=== PATIENT | male | born 1960 | race Caucasian/White ===

== ENCOUNTER 2018-05-05 16:20 | Emergency (ER) | payer MEDICAID ==
[~2018-05-05] VITALS: Ht 172.7 cm; Wt 83.9 kg
[2018-05-05 16:38] VITALS: BP 148/87
--- NOTE | 2018-05-05 16:45 | NUR ---
ED Nurse Note: A/OX4. AMBULATED IN TO ER DUE TO ABCESS ON BILATERAL KNEES AND LEFT GROIN. PT STATE THAT HE WENT TO ER 05/03/18 BUT NO I/O DONE. SYMPTOM GOT WORSE AND WENT TO PMD AND WAS RECOMMENDED TO COME TO ER. C/O PAIN 10/01.
[2018-05-05] MEDS ORDERED: Lidocaine 1% 10mg/ml/Epi 0.005mg/ml 30ml vial INJ ONE ×2 (17:41→17:45)
--- NOTE | 2018-05-05 17:44 | NUR ---
ED Nurse Note: DR. EDMONDSON AT THE BEDSIDE FOR I/D. LIDOCAINE 1% WITH EPI MPF VERBAL ORDER RECEIVED BY LUÍS ROSS.
[2018-05-05] MEDS ORDERED: Piperacillin/Tazobactam 3.375 GM in NS 110 ML IVPB ONE (18:15)
--- NOTE | 2018-05-05 18:19 | Emergency Room Report ---
History of Present Illness General Chief Complaint: Skin Rash/Abscess Source: Patient Present Illness HPI 57-year-old male patient presents the ER complaining of 3 abscesses on his inguinal region and bilateral knees for the past 3 days. States that he went to another ER when they told him he had cellulitis and prescribed him antibiotics, states he was started on Keflex and Bactrim which he has continued to take. Reports symptoms have worsened since that time, states he went to his primary care doctor earlier today and was told to report to the ER for I&D of abscess. Reports drainage from the inguinal abscess. Denies fever, chest pain, shortness of breath. Denies history of diabetes. Allergies: Coded Allergies: No Known Allergies (Unverified , 05/05/18) Patient History Past Medical History: see triage record Reviewed Nursing Documentation: PMH: Agreed; PSxH: Agreed Nursing Documentation-PMH Past Medical History: No History, Except For Hx Hypertension: Yes Review of Systems All Other Systems: negative except mentioned in HPI Physical Exam Vital Signs Date Time Temp Pulse Resp B/P (MAP) Pulse Ox O2 Delivery O2 Flow Rate FiO2 05/05/18 16:33 98.2 77 18 148/87 98 Room Air Sp02 EP Interpretation: reviewed, normal General Appearance: well appearing, no apparent distress, alert, GCS 15, non- toxic Head: normocephalic, atraumatic Eyes: bilateral eye normal inspection, bilateral eye PERRL ENT: hearing grossly normal, normal pharynx, no angioedema, normal voice, uvula midline, moist mucus membranes Neck: full range of motion Respiratory: lungs clear, normal breath sounds, no rhonchi, no respiratory distress, no accessory muscle use, no wheezing, speaking full sentences Cardiovascular #1: regular rate, rhythm, no edema Musculoskeletal: back normal, digits/nails normal, gait/station normal, normal range of motion, non-tender Neurologic: alert, oriented x3, responsive, motor strength/tone normal, sensory intact Psychiatric: mood/affect normal Skin: other - Left inguinal region; fluctuant abscess, drainage noted, surrounding erythema, tender to palpation; right suprapatellar knee: Small circular 1 cm fluctuant abscess, no surrounding erythema or edema, no drainage no red streaking; left suprapatellar knee: 1 cm circular area of erythema and edema, no palpable mass, no fluctuance or induration, no red streaking Medical Decision Making PA Attestation Dr. Lawrence is my supervising Physician whom patient management has been discussed with. Diagnostic Impression: Primary Impression: Abscess Additional Impression: Cellulitis ER Course On right knee and left inguinal abscess. Pt. presents to the ED c/o abscesses on knees and in left inguinal region. Ddx considered but are not limited to rash, cellulitis, abscess, sebaceous cyst , carbuncle, folliculitis. Does not require imaging at this time. Vital signs: are WNL, pt. is afebrile ED INTERVENTIONS: Patient seen and evaluated by Dr. Ugalde who was kind enough to consult on this patient. I&D performed by him left knee shows cellulitis. Will treat with oral antibiotics. Left knee does not require I&D at this time. Provide with IV vancomycin in the ER. CBC shows no elevation in WBCS CMP unremarkable, mild elevation noted in BUN, creatinine WNL Sterile dressing applied to wound following procedure. Discussed patient care with Dr. Ugadle, will discharge patient home with Augmentin, instructed to take instead of Keflex. Continue taking Bactrim. Follow-up with primary care provider or Dr. Ugalde in 2-3 days for wound check. Return to ER immediately for any worsening of symptoms. Okay for outpatient treatment and follow-up. Keep clean and dry. ER precautions given. DISCHARGE: -Rx provided for Augmentin -Rx provided for Ultram. May cause drowsiness, do not take prior to drinking, driving, operating heavy machinery. At this time pt. is stable for d/c to home. Patient is resting comfortably, in no acute distress, nontoxic appearing. Will provide printed patient care instructions and any necessary prescriptions. Care plan and follow up instructions have been discussed with the patient prior to discharge. Patient instructed to follow-up with primary care provider in 2 - 3 days for wound recheck. Patient questions asked and answered. Patient reports understanding and agreement to treatment plan. ER precautions given. Patient instructed to return to ER immediately for any new or worsening of symptoms including but not limited to fever, worsening of pain symptoms, worsening of erythema, red streaking. - Please note that this Emergency Department Report was dictated using [employer] icer technology software, occasionally this can lead to erroneous entry secondary to interpretation by the dictation equipment. Labs Test 2/11/19 08:25 White Blood Count 9.7 K/UL (4.8-10.8) Red Blood Count 5.11 M/UL (4.70-6.10) Hemoglobin 15.0 G/DL (14.2-18.0) Hematocrit 46.1 % (42.0-52.0) Mean Corpuscular Volume 90 FL (80-99) Mean Corpuscular Hemoglobin 29.4 PG (27.0-31.0) Mean Corpuscular Hemoglobin Concent 32.6 G/DL (32.0-36.0) Red Cell Distribution Width 12.8 % (11.6-14.8) Platelet Count 198 K/UL (150-450) Mean Platelet Volume 10.7 FL (6.5-10.1) Neutrophils (%) (Auto) 67.3 % (45.0-75.0) Lymphocytes (%) (Auto) 23.0 % (20.0-45.0) Monocytes (%) (Auto) 7.1 % (1.0-10.0) Eosinophils (%) (Auto) 1.4 % (0.0-3.0) Basophils (%) (Auto) 1.2 % (0.0-2.0) Sodium Level 137 MMOL/L (136-145) Potassium Level 4.0 MMOL/L (3.5-5.1) Chloride Level 100 MMOL/L (98-107) Carbon Dioxide Level 28 MMOL/L (21-32) Anion Gap 10 mmol/L (5-15) Blood Urea Nitrogen 19 mg/dL (7-18) Creatinine 1.3 MG/DL (0.55-1.30) Estimat Glomerular Filtration Rate 56.5 mL/min (>60) Glucose Level 96 MG/DL (74-106) Calcium Level 9.5 MG/DL (8.5-10.1) Total Bilirubin 0.7 MG/DL (0.2-1.0) Aspartate Amino Transf (AST/SGOT) 17 U/L (15-37) Alanine Aminotransferase (ALT/SGPT) 29 U/L (12-78) Alkaline Phosphatase 77 U/L (46-116) Total Protein 8.4 G/DL (6.4-8.2) Albumin 4.0 G/DL (3.4-5.0) Globulin 4.4 g/dL Albumin/Globulin Ratio 0.9 (1.0-2.7) Last Vital Signs Date Time Temp Pulse Resp B/P (MAP) Pulse Ox O2 Delivery O2 Flow Rate FiO2 05/05/18 16:38 98.2 77 18 148/87 98 Room Air Status: improved Disposition: HOME, SELF-CARE Condition: Stable Scripts Tramadol Hcl* (ULTRAM*) 50 Mg Tablet 50 MG ORAL Q6H PRN for For Pain, #10 TAB 0 Refills Prov: Rey Antony 05/05/18 Amoxicillin/Potassium Clav 875-125* (AUGMENTIN 875-125 TABLET*) 1 Each Tablet 1 TAB ORAL TWICE A DAY for 10 Days, #20 TAB Prov: Rey Antony 05/05/18 Patient Instructions: Abscess, Cellulitis, [id number]-[id number] Additional Instructions: Followup with PCP in 2-3 days for wound check. Take medications as instructed. Ultram may cause drowsiness, do not take prior to drinking, driving, operating heavy machinery. Patient questions asked and answered. Apply warm compresses to affected area. Keep wound clean and dry. ER precautions given. Return to ER for new or worsening of symptoms including but not limited to chest pain, SOB, red streaking, worsening of abscess, intractable vomiting. Rey Antony May 05, 2018 18:19
[2018-05-05 18:42] LABS: BASOPHILS % (AUTO) 1.2 % (0.0-2.0); EOSINOPHILS % (AUTO) 1.4 % (0.0-3.0); HEMATOCRIT 46.1 % (42.0-52.0); MEAN CORPUSCULAR VOLUME 90 FL (80-99); MONOCYTES % (AUTO) 7.1 % (1.0-10.0); NEUTROPHILS % (AUTO) 67.3 % (45.0-75.0); PLATELET COUNT 198 K/UL (150-450); RED BLOOD COUNT 5.11 M/UL (4.70-6.10); RED CELL DISTRIBUTION WIDTH 12.8 % (11.6-14.8); WHITE BLOOD COUNT 9.7 K/UL (4.8-10.8)
[2018-05-05 18:52] LABS: ANION GAP 10 mmol/L (5-15); BLOOD UREA NITROGEN 19 mg/dL (7-18); CALCIUM 9.5 MG/DL (8.5-10.1); CARBON DIOXIDE 28 MMOL/L (21-32); CHLORIDE 100 MMOL/L (98-107); CREATININE 1.3 MG/DL (0.55-1.30); SODIUM 137 MMOL/L (136-145)
[2018-05-05 18:56] LABS: ALANINE AMINOTRANSFERASE 29 U/L (12-78); ALBUMIN/GLOBULIN RATIO 0.9 (1.0-2.7); ALKALINE PHOSPHATASE 77 U/L (46-116); ASPARTATE AMINO TRANSFERASE 17 U/L (15-37); BILIRUBIN,TOTAL 0.7 MG/DL (0.2-1.0)
--- NOTE | 2018-05-05 18:57 | Consultation ---
History of Present Illness General Date patient seen: May 05, 2018 Reason for Hospitalization: Skin Rash/Abscess Present Illness HPI 57 year old male otherwise healthy began to have right knee and left inguinal pain a few days ago. noted area of cellulitis in right knee and left groin so he went to his PCP for evaluation. Place on oral Abx without significant improvement. areas of cellulitis became larger and left groin began to drain purulent fluid. was sent by his PCP to ED for evaluation given worsening. surgery called to evaluate and assist with care/management. patient seen, chart reviewed, patient examined. Allergies: Coded Allergies: No Known Allergies (Unverified , 05/05/18) Patient History Healthcare decision maker Resuscitation status Advanced Directive on File Review of Systems Review of Symptoms General ROS: no weight loss or fever Psychological ROS: no depression or mood changes, no memory loss Ophthalmic ROS: no visual changes or eye irritation ENT ROS: no nasal congestion, hearing loss, dizziness Allergy and Immunology ROS: no allergic symptoms or urticaria Hematological and Lymphatic ROS: no swollen glands, unusual bleeding or bruising Endocrine ROS: no polyuria, polydipsia, weight changes, temperature intolerance Respiratory ROS: no cough, shortness of breath, or wheezing Cardiovascular ROS: no chest pain or dyspnea on exertion Gastrointestinal ROS: denies abdominal pain, bright red blood in stool. Musculoskeletal ROS: no myalgias or arthralgias Neurological ROS: no TIA or stroke symptoms Dermatological ROS: no new or changing skin lesions, rashes or pruritis Physical Exam Physical Exam General appearance: alert, cooperative, no distress, appears stated age Head: Normocephalic, without obvious abnormality, atraumatic Eyes: conjunctivae/corneas clear. PERRL, EOM's intact. Fundi benign Throat: Lips, mucosa, and tongue normal. Teeth and gums normal Neck: supple, symmetrical, trachea midline, no adenopathy, thyroid: not enlarged, symmetric, no tenderness/mass/nodules, no carotid bruit and no JVD Lungs: clear to auscultation bilaterally Heart: regular rate and rhythm, S1, S2 normal, no murmur, click, rub or gallop Abdomen: soft, non-tender. Bowel sounds normal. No masses, no organomegaly Extremities: extremities normal, atraumatic, no cyanosis or edema Pulses: 2+ and symmetric Skin: Skin color, texture, turgor normal. left inguinal cellulitis 7cm x9cm with 3mm area of skin ulceration at apex, indurated, tender, purulent drainage from ulceration on palpation. right knee 3cm x 4cm area of induration with fluctuance at apex, no drainage. Neurologic: Grossly normal Last 24 Hour Vital Signs Date Time Temp Pulse Resp B/P (MAP) Pulse Ox O2 Delivery O2 Flow Rate FiO2 05/05/18 16:38 98.2 77 18 148/87 98 Room Air 05/05/18 16:33 98.2 77 18 148/87 98 Room Air Laboratory Tests Test 05/05/18 08:25 White Blood Count 9.7 K/UL (4.8-10.8) Red Blood Count 5.11 M/UL (4.70-6.10) Hemoglobin 15.0 G/DL (14.2-18.0) Hematocrit 46.1 % (42.0-52.0) Mean Corpuscular Volume 90 FL (80-99) Mean Corpuscular Hemoglobin 29.4 PG (27.0-31.0) Mean Corpuscular Hemoglobin Concent 32.6 G/DL (32.0-36.0) Red Cell Distribution Width 12.8 % (11.6-14.8) Platelet Count 198 K/UL (150-450) Mean Platelet Volume 10.7 FL (6.5-10.1) H Neutrophils (%) (Auto) 67.3 % (45.0-75.0) Lymphocytes (%) (Auto) 23.0 % (20.0-45.0) Monocytes (%) (Auto) 7.1 % (1.0-10.0) Eosinophils (%) (Auto) 1.4 % (0.0-3.0) Basophils (%) (Auto) 1.2 % (0.0-2.0) Sodium Level Pending Potassium Level Pending Chloride Level Pending Carbon Dioxide Level Pending Blood Urea Nitrogen Pending Creatinine Pending Estimat Glomerular Filtration Rate Pending Glucose Level Pending Calcium Level Pending Total Bilirubin Pending Aspartate Amino Transf (AST/SGOT) Pending Alanine Aminotransferase (ALT/SGPT) Pending Alkaline Phosphatase Pending Total Protein Pending Albumin Pending Globulin Pending Height (Feet): 5 Height (Inches): 8.00 Weight (Pounds): 185 Assessment/Plan Problem List: (1) Cellulitis ICD Codes: L03.90 - Cellulitis, unspecified SNOMED: 797500223 (2) Abscess Assessment & Plan: left inguinal abscess - needs I&D right knee abscess - needs I&D see procedure note. -f/u cultures -d/c home -f/u with PCP -packing and dressing changes TID -augmentin and bactrim until cultures resulted thank you ICD Codes: L02.91 - Cutaneous abscess, unspecified SNOMED: [id number] Bari Ugalde May 05, 2018 18:57
--- NOTE | 2018-05-05 19:00 | NUR ---
HAND-OFF: Report given to FLOWER Hernandez. No s/s of distress.
[2018-05-05] MEDS ORDERED: AUGMENTIN 875-1 EAC1 ORAL (19:01)
[2018-05-05] MEDS ORDERED: TRAMADOL HCL50 MG ORAL (19:01)
--- NOTE | 2018-05-05 19:01 | NUR ---
ED Nurse Note: Received report from Nanette/RN. Pt is A/O X 4. VSS.
--- NOTE | 2018-05-05 19:07 | Operative Note - PDOC ---
Operative Note Operative Note Date of Operation/Procedure: May 05, 2018 Pre-op Diagnosis: 1. left inguinal abscess 2. right knee abscess Post-op Diagnosis: same as pre-op Surgeon: juice Anesthesia: local Specimen: yes - cultures Complications: none Condition: stable Estimated Blood Loss: minimal Drains: none Implant(s) used?: No Indications for Procedure 57M multiple abscess of skin including left inguinal and right knee refractory to oral abx treatment. worsening. now left inguinal with purulent drainage. I& D indicated and recommended. risks, benefits, and alternatives discussed in detail with patient. consent obtained. procedure bedside in ED Description of Procedure patient made comfortable at bedside in ED. left groin and right knee prepped and draped in standard surgical fashion. 1%lido with epi infiltrated in proposed skin incision site. using fresh #11 scalpel the left groin and right knee with incised. purulent drainage evacuated and sent for cultures. wounds irrigated and cleaned. wounds packed with gauze and dressings applied. patient tolerated well. Bari Ugalde May 05, 2018 19:07
[2018-05-05 19:08] VITALS: BP 142/81
--- NOTE | 2018-05-05 19:08 | NUR ---
ED Nurse Note: Pt has seen by Rey/LUÍS, all orders carried out.Pt is ready for Discharge. D/C instruction and Prescription given to Pt and verbalized understanding.IV/ID band removed. Pt d/c from ED with steady gait with all belongings.
== END 2018-05-05 19:08 | disposition home or self-care (01) ==
LOC: EMR 17:00
DX: L02.214 Cutaneous abscess of groin (principal); L02.416 Cutaneous abscess of left lower limb; I10 Essential (primary) hypertension
CPT/HCPCS: 10061; 36415; 80053; 85025; 87070; 87075; 87181; 87205; 96365; 99284; J2543; Z7502

== ENCOUNTER 2018-09-05 07:00 | Inpatient (IN) | payer OTHER ==
[~2018-09-05] VITALS: Ht 172.7 cm; Wt 94.4 kg
[~2018-09-05 07:00] MED LIST: AUGMENTIN 875-1 EAC1 ORAL; TRAMADOL HCL50 MG ORAL
[2018-10-17] VITALS (16 sets, daily range): BP systolic 104–137; BP diastolic 60–91
[2018-10-17] MEDS ORDERED: Propofol 1,000mg/ 100ml btl IV ONE (07:00)
[2018-10-17] MEDS ORDERED: Dexamethasone 20mg/5ml IVP ONE (07:00)
[2018-10-17] MEDS ORDERED: ceFAZolin sod 1 GM in NS 55 ML IVPB ONE (07:00)
[2018-10-17] MEDS ORDERED: DiphenhydrAMINE 50mg/ml Inj IVP PRN (08:00)
[2018-10-17] MEDS ORDERED: LR 1000ml 1,000 ML IVLG SCH (08:00)
[2018-10-17] MEDS ORDERED: LORazepam Inj 2mg/ml 1ml IV PRN (08:00)
[2018-10-17] MEDS ORDERED: Atropine Sulfate 0.4mg/ml inj IVP PRN (08:00)
[2018-10-17] MEDS ORDERED: Midazolam 2mg/2ml Inj IVP PRN (08:00)
[2018-10-17] MEDS ORDERED: fentaNYL 100 mcg/2 mL IV PRN (08:00)
[2018-10-17] MEDS ORDERED: Labetalol 5mg/ml 20ml vial IV PRN (08:00)
[2018-10-17] MEDS ORDERED: Acetaminophen (Non formulary) 100 ML IV ONE (08:00)
[2018-10-17] MEDS ORDERED: HYDROcodone/Acetamin 5/325 tab ORAL PRN (08:00)
[2018-10-17] MEDS ORDERED: Hydromorphone 0.5mg/0.5ml inj IVP PRN (08:00)
[2018-10-17] MEDS ORDERED: Ketorolac 30mg Inj IV PRN ×2 (08:00)
[2018-10-17] MEDS ORDERED: oxyCODONE HCL/Acetaminophen 5/325mg ORAL PRN (08:00)
[2018-10-17] MEDS ORDERED: Meperidine 50mg/ml Inj(FOR RIGORS ONLY) IVP PRN (08:00)
[2018-10-17] MEDS ORDERED: HYDROcodone/Acetamin 7.5/325 tab ORAL PRN (08:00)
[2018-10-17] MEDS ORDERED: Metoclopramide 10mg/2ml Inj IVP PRN (08:00)
--- NOTE | 2018-10-17 08:06 | Immediate Post-Op Evaluation ---
Immediate Post-Op Evalulation Immediate Post-Op Evalulation Procedure: ALIF L4-L5 Date of Evaluation: Oct 17, 2018 Blood Products: 0 Pain Score (1-10): 2 Nausea: No Vomiting: No Complications 0 Patient Status: awake, reacts, patent, extubated, none Hydration Status: adequate Dru Grams Ancef IV Given Within 1 Hr of Incision: Yes Raheem Hernandez MD Oct 17, 2018 08:06
[2018-10-17] MEDS ORDERED: Chloraseptic Spray 20mL Bottle ORAL PRN (08:30)
[2018-10-17] MEDS ORDERED: HYDROmorphone 1mg/ml Carpuject SUBQ PRN (08:30)
[2018-10-17] MEDS ORDERED: LORazepam 0.5mg tab ORAL PRN (08:30)
[2018-10-17] MEDS ORDERED: Lidocaine 1% Plain 30 ml INJ ONE (08:40)
[2018-10-17] MEDS ORDERED: fentaNYL 100 mcg/2 mL IV ONE ×2 (08:50→10:42)
[2018-10-17] MEDS ORDERED: Lidocaine 1% MPF 10mg/ml 5ml ONE (08:52)
[2018-10-17] MEDS ORDERED: Sodium Chloride 10ml vial INJ ONE (08:52)
--- NOTE | 2018-10-17 08:56 | Pre-Procedure Note/Attestation ---
Pre-Procedure Note/Attestation Complete Prior to Procedure Planned Procedure: not applicable Procedure Narrative: L4-L5 ALIF WITH ANTERIOR INTERNAL PLATE FIXATION FUSION Indications for Procedure Pre-Operative Diagnosis: post trauma back pain with clinical instability Attestation I attest that I discussed the nature of the procedure; its benefits; risks and complications; and alternatives (and the risks and benefits of such alternatives ), prior to the procedure, with the patient (or the patient's legal entry level sales representative). I attest that, if there was a reasonable possibility of needing a blood transfusion, the patient (or the patient's legal entry level sales representative) was given the [place] [employer] standardized written summary, pursuant to the Maximilian Flavia Blood Safety Act ([place] Health and Safety Code # 1645, as amended). I attest that I re-evaluated the patient just prior to the surgery and that there has been no change in the patient's H&P, except as documented below: Jonatan Matthews MD Oct 17, 2018 08:56
[2018-10-17] MEDS ORDERED: NORCO 10-325 T1 EACH ORAL (09:04)
[2018-10-17] MEDS ORDERED: Dexamethasone 20mg/5ml ONE (09:24)
[2018-10-17] MEDS ORDERED: Neostigmine 1mg/ml 10ml Inj ONE (09:30)
[2018-10-17] MEDS ORDERED: Sterile Water Irrig 1000ml IRRIG ONE (09:30)
[2018-10-17] MEDS ORDERED: NS Irrig 1000ml ONE (09:30)
[2018-10-17] MEDS ORDERED: Zemuron 50mg/5ml Inj IV ONE (09:30)
[2018-10-17] MEDS ORDERED: LR 1000ml ONE (09:30)
[2018-10-17] MEDS ORDERED: Heparin 5000 units/ml inj ONE (09:31)
[2018-10-17] MEDS ORDERED: Ropivacaine 5mg/ml Vial 30ml INJ ONE (09:31)
[2018-10-17] MEDS ORDERED: Gelfoam Size TOPIC ONE (09:31)
[2018-10-17] MEDS ORDERED: Thrombin 5000 units TOPIC ONE (09:31)
[2018-10-17] MEDS ORDERED: Bacitracin 50000 Units Vial ONE (09:32)
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
--- NOTE | 2018-10-17 10:21 | Anethesia Preoperative Eval ---
Anesthesia Pre-op PMH/ROS General Date of Evaluation: Oct 17, 2018 Time of Evaluation: 09:28 Anesthesiologist: David ASA Score: ASA 3 Mallampati Score Class I : Soft palate, uvula, fauces, pillars visible Class II: Soft palate, uvula, fauces visible Class III: Soft palate, base of uvula visible Class IV: Only hard plate visible Mallampati Classification: Class III Surgeon: Cassie Diagnosis: Back Pain Surgical Procedure: ALIF L4-L5 Anesthesia History: none Social History: current smoker - 40 pk yrs Family History: no anesthesia problems Allergies: Coded Allergies: No Known Allergies (Unverified , 05/05/18) Medications: see eMAR Patient NPO?: Yes NPO Date: Oct 16, 2018 NPO Time: 2300 Past Medical History Cardiovascular: Reports: HTN Pulmonary: Reports: COPD - Smoker Other: obesity Anesthesia Pre-op Phys. Exam Physician Exam Last Vital Signs Date Time Temp Pulse Resp B/P (MAP) Pulse Ox O2 Delivery O2 Flow Rate FiO2 10/17/18 09:20 97.8 62 20 122/76 (91) 97 10/17/18 09:04 Room Air Constitutional: NAD Neurologic: CN 2-12 intact Cardiovascular: RRR Respiratory: CTA Gastrointestinal: S/NT/ND Airway Exam Mallampati Score: Class III MO: limited ROM: limited Teeth: missing, intact Anesthesia Pre-op A/P Risk Assessment & Plan Assessment: ASA 3 Plan: GA, SED, GlideScope Go Status Change Before Surgery: No Pre-Antibiotics Dru Grams Ancef IV Given Within 1 Hr of Incision: Yes Time Given: 09:56 Raheem Hernandez MD Oct 17, 2018 10:21
--- NOTE | 2018-10-17 10:22 | Immediate Post-Op Evaluation ---
Immediate Post-Op Evalulation Immediate Post-Op Evalulation Procedure: ALIF L4-L5 Date of Evaluation: Oct 17, 2018 Time of Evaluation: 11:55 IV Fluids: 800 LR Blood Products: 0 Estimated Blood Loss: 30 Urinary Output: 0 Blood Pressure Systolic: 147 Blood Pressure Diastolic: 93 Pulse Rate: 67 Respiratory Rate: 16 O2 Sat by Pulse Oximetry: 100 Temperature (Fahrenheit): 97 Pain Score (1-10): 3 Nausea: No Vomiting: No Complications 0 Patient Status: awake, reacts, patent, extubated, none Hydration Status: adequate Dru Grams Ancef IV Given Within 1 Hr of Incision: Yes Time Given: 09:56 Raheem Hernandez MD Oct 17, 2018 10:22
--- NOTE | 2018-10-17 10:23 | 48 Hour Post Anesthesia Eval ---
Post Anesthesia Evaluation Procedure: ALIF L4-L5 Date of Evaluation: Oct 17, 2018 Time of Evaluation: 14:12 Blood Pressure Systolic: 143 0: 81 Pulse Rate: 72 Respiratory Rate: 18 Temperature (Fahrenheit): 98.2 O2 Sat by Pulse Oximetry: 96 Airway: patent Nausea: No Vomiting: No Pain Intensity: 3 Hydration Status: adequate Cardiopulmonary Status: Stable Mental Status/LOC: patient returned to baseline Follow-up Care/Observations: 0 Post-Anesthesia Complications: 0 Follow-up care needed: N/A Raheem Hernandez MD Oct 17, 2018 10:23
[2018-10-17] MEDS ORDERED: Glycopyrrolate 0.2mg/ml 1ml Vial ONE (11:09)
--- NOTE | 2018-10-17 11:11 | Brief Operative Note ---
Immediate Post Operative Note Operative Note Pre-op Diagnosis: post trauma back pain with clinical instability Procedure: ALIF L4-L5 Anterior Plate SSEP Xray Local osteopromotive material Post-op Diagnosis: same as pre-op Findings: consistent w/pre-op dx studies Surgeon: Cassie Ph.D., M.D. Additional Surgeons: Checo ORLANDO Anesthesiologist: David ORLANDO Anesthesia: general Specimen: yes Complications: none Condition: stable Fluids: anesthesia Estimated Blood Loss: minimal Drains: none Implant(s) used?: Yes Jonatan Matthews MD Oct 17, 2018 11:11
[2018-10-17] MEDS ORDERED: Naloxone 0.4mg/ml Inj IVP PRN (11:15)
--- NOTE | 2018-10-17 12:28 | NUR ---
CASE MANAGEMENT:REVIEW 58 YR OLD MALE HERE FOR ELECTIVE SURGERY SI: BACK PAIN 97.8 62 20 122/76 97% ON RA IS: TO SURGERY FOR ALIF L4-L5 IV ANCEF Q8HR IVF@150/HR IV DILAUDID PRN : TO MED/SURG 3 EAST POST OP INTERQUAL CRITERIA MET
--- NOTE | 2018-10-17 13:00 | NUR ---
NURSE NOTES: Report received from Nevin CRENSHAW from PACU via telephone report at 1248. Patient arrived at 1300 to 315-2 via bed on O2 2LNC in stable condition. VSS. Patient sleeping, awakens to name. No distress, no SOB, no NV. IVF (LR) infusing to right hand, will connect to IV pump and change IVF as ordered. Bilateral SCDs on. Abdominal dressing CDI, ice pack in place. CMS+ skin warm, pulses palpable, wiggles, hand grasps/pedal pushes equal 4/5. Instructed patient and spouse on new orders and plan of care, verbalized understanding. Provided IS, instructed/demonstrated on use, patient needs further instructions and reinforcement. Belongings reviewed with spouse and PACU staff member. Oriented patient and spouse to room and call light. Bed in lowest position, will continue to monitor.
[2018-10-17] MEDS: D5 1/2NS 1,000 ML IV SCH ×2 (13:35→20:24)
[2018-10-17] MEDS: HYDROmorphone 1mg/ml Carpuject IVP PRN ×2 (14:08→19:14)
--- NOTE | 2018-10-17 15:02 | Diagnostic Imaging Report ---
INDICATION: Pain, intraoperative TECHNIQUE: Intraoperative imaging Fluoroscopy time: 6.6 seconds Total dose: 0.92168 mGym2 Total number of images: 6 3 COMPARISON: None FINDINGS: And initial image demonstrates surgical tool projecting anterior to what is presumably L4-5. Subsequent images demonstrate placement of anterior fusion hardware at L4-5 IMPRESSION: Intraoperative imaging, as described
[2018-10-17] MEDS: Tamsulosin 0.4mg cap ORAL SCH (16:35)
--- NOTE | 2018-10-17 17:00 | Operative Note - Dictated ---
DATE OF OPERATION: 10/17/2018 VASCULAR SURGEON: Ke Kessler M.D. SPINE SURGEON: Jonatan Matthews M.D. PREOPERATIVE DIAGNOSIS: Lumbar pain. POSTOPERATIVE DIAGNOSIS: Lumbar pain. PROCEDURE PERFORMED: Anterior retroperitoneal exposure, L4-L5 vertebral interspace, left retroperitoneal approach. INDICATIONS: This is a very pleasant gentleman who was seen in my office prior to surgery. He has been scheduled for anterior spine operation at L4-L5. The patient has no prior history of anterior spine surgery. No history of deep venous thrombosis or bleeding complications. He was made aware of the risks of surgery including vascular injury, possible need for blood transfusion and deep venous thrombosis. DESCRIPTION OF FINDINGS: A low vertical midline incision was used. A left retroperitoneal approach was used. There was no peritoneal or ureteral violation. There was no vascular injury. Exposure of L4-L5 was obtained above the iliac bifurcation and confirmed using fluoroscopy. On completion, the peritoneum and ureter were intact. Iliac vessels were intact. Blood loss less than 100 mL. Complications, none. DESCRIPTION OF PROCEDURE: The patient was taken to the operative room. General anesthesia was used. antibiotics were given. The patient's abdomen was prepped and draped. Appropriate time-out of procedure was taken. Low vertical midline incision made infraumbilically. The anterior fascia was incised longitudinally in the midline. A plane was identified posterior to the left rectus abdominis and developed posterolaterally to the patient's left. The retroperitoneal space entered below the arcuate line. The peritoneum and ureter mobilized towards the patient's right exposing the left common iliac artery and vein. Dissection was carried lateral to the left common iliac vessel. The iliolumbar vein was small and ligated with vascular clamps proximally and distally. The L4 segmental vessels were ligated vascular clips and divided. This allowed us to retract the left iliac artery and vein toward the patient's right exposing the anterior surface of the L4-L5. The Omni retractor blades were set in place. Fluoroscopy was then used to confirm the appropriate level. The instrumentation performed at L4-L5 dictated separately. On completion, retractor gently removed. The peritoneum and ureter were intact. Iliac vessels were intact. Blood loss less than 100 mL. Anterior fascia was then closed using #1 PDS in a running fashion. The skin and subcutaneous tissue closed with 3-0 Vicryl and 4-0 Monocryl running subcuticular closure technique. Estimated blood loss less than 100 mL. Complications, none. Ke Kessler M.D. DR: Shanna JOB#: [id number] CC:
--- NOTE | 2018-10-17 17:00 | Operative Note - Dictated ---
DATE OF OPERATION: 10/17/2018 PRIMARY SURGEON: Jonatan Matthews M.D. VASCULAR SURGEON: Dr. Kessler. Please see separate exposure report, closure report by Dr. Kessler. ANESTHESIOLOGIST: Raheem Hernandez M.D. ANESTHESIA: General with intubation. ESTIMATED BLOOD LOSS: Less than 50 mL. COMPLICATIONS: None. POSTOPERATIVE CONDITION: Good/stable. PROCEDURE: 1. ALIF L4-L5, anterior internal plate fixation. 2. Placement of BMP/osteopromotive material encased in fibrin glue. 3. Anterior internal plate fixation in compressive fashion 25 mm titanium screws. 4. SSEP monitoring. 5. Local anesthetic applied by surgeons. 6. Intraoperative fluoroscopy interpreted by surgeons. DESCRIPTION OF PROCEDURE: The patient was brought to the operating room and in the supine position, general anesthesia with intubation was induced. IV antibiotics and IV Decadron were administered 30 minutes prior to incision time. Anterior abdomen was sterilely prepped and draped free in usual sterile fashion. Please see exposure and closure through the separate dictation by Dr. Kessler, vascular surgery. L4-L5 was identified in the AP and lateral planes. Under sterile conditions with the spine needle placed 3 mm into the disk space. Level position marked. Needle removed. Annulotomy followed diskectomy to, but not through the posterior longitudinal ligament. End-plates denuded of cartilage without violation of subchondral bone. Appropriate trials utilized for determination of the correct size implant. Implant selected, mounded, packed with bone morphogenic protein appropriately and inserted under direct observation with magnification. Fluoroscopic guidance. Insert removed. Graft incorporated in fibrin glue. Anterior internal plate fixation in compressive fashion. Bilateral screws L4, bilateral screws at L5. Locked into position. AP and lateral radiographs obtained and recorded demonstrating excellent alignment and position as correct. Wound irrigated with antibiotic-containing saline. SSEP monitoring stable. Jonatan Matthews M.D. DR: RACHELLE JOB#: [id number] CC:
[2018-10-17] MEDS: ceFAZolin sod 1 GM in D5W 55 ML IV SCH (18:44)
--- NOTE | 2018-10-17 19:45 | NUR ---
NURSE NOTES: Received report from FLOWER Zabala and walking rounds done with outgoing nurse. Received pt lying in bed, AOx4, pain level 2/10, no distress noted. IV R hand patent and intact. IV fluid infusing as ordered. Surgical dressing C/D/I. Plan of care discussed with pt., verbalized understanding. Bed in lowest position and locked, side rails up x 2, call light within reach. Will continue to monitor.
[2018-10-18] MEDS: ceFAZolin sod 1 GM in D5W 55 ML IV SCH ×2 (01:59→09:16)
[2018-10-18] MEDS: D5 1/2NS 1,000 ML IV SCH ×4 (02:43→23:25)
[2018-10-18 04:00] VITALS: BP 102/60
[2018-10-18] MEDS: HYDROcodone/Acetamin 10/325 tab ORAL PRN ×2 (04:21→16:43)
--- NOTE | 2018-10-18 07:41 | NUR ---
HAND-OFF: Report given to FLOWER Hayes. Pt in stable condition.
[2018-10-18 08:00] VITALS: BP 102/58
--- NOTE | 2018-10-18 08:00 | NUR ---
NURSE NOTES: Received report from Jeremie Servin pt a/a/o x4 laying in bed with no signs of distress or other issues this time. surgical dressing dry and intact. IV on the right FA gauge#20 running D5NS@50ml/hr. pt was able to ambulate around the room with steady gait. call light within reach. bed in lowest position., side rales up x2. I will f/u as needed.
[2018-10-18] MEDS: HYDROmorphone 1mg/ml Carpuject IVP PRN ×3 (09:25→21:45)
[2018-10-18] MEDS ORDERED: Tubing IV Secondary IV ONE (09:38)
[2018-10-18] MEDS ORDERED: D5 1/2NS 1000ml IV ONE (09:38)
--- NOTE | 2018-10-18 10:30 | NUR ---
PT Note Attempted to see patient for eval/tx but patient requested to defer PT till this afternoon as he just got back to bed. He states that he was assisted by nursing to use the bathroom earlier.
[2018-10-18 12:00] VITALS: BP 128/66
--- NOTE | 2018-10-18 14:36 | NUR ---
CASE MANAGEMENT:REVIEW 10/18/2018 SI: BACK PAIN T 97.4 HR 52 RR 18 B/P 126/66 SATS 96% ON RA NO LABS TODAY IS: IV ANCEF Q8HR IVF@150/HR IV DILAUDID PRN : TO MED/SURG [facility]
--- NOTE | 2018-10-18 15:38 | NUR ---
PT Note PT akiko completed, treatment initiated. Patient needs physical therapy to instruct and train on proper log rolling techniques and proper body mechanics for safe and independent functional mobility and gait. Addendum: 10/18/18 at 1540 by AMANDA CHRISTIANSON PT Amended: Links added.
[2018-10-18 16:00] VITALS: BP 110/60
[2018-10-18] MEDS: Tamsulosin 0.4mg cap ORAL SCH (16:20)
--- NOTE | 2018-10-18 17:45 | Progress Note ---
DATE: 10/18/2018 ACUTE PAIN MANAGEMENT PHYSICIAN PROGRESS NOTE MEDICATIONS: Medication administration record reviewed. Medications include Flomax, Chloraseptic spray, Zofran, Narcan, Ativan, Dilaudid, [place], Pepcid, Benadryl, Catapres, Soma, Mylanta, Fioricet, and Tylenol. LABORATORY STUDIES: No interval laboratory studies. OBJECTIVE: Vital signs within normal limits. Afebrile, pulse 63, respirations 20, and blood pressure 102/58. Oxygen saturation 97% on supplemental oxygen. I spent over 60 minutes in consultation today. The patient has been out of bed, ambulating to the restroom. The patient is a very heavy smoker. I encouraged the patient to stop smoking as well as to be very aggressive with his incentive spirometer usage. The patient has stated that his pain is significant with coughing. I instructed him to more frequently request breakthrough p.r.n. pain medications to enable deep breathing. The patient has tolerated both Dilaudid and Avawam without any adverse side effects. I will continue the current analgesic regimen as ordered. After his ALIF procedure, he still has not yet passed positive flatus. Therefore, we will continue him NPO except for medications and ice chips, until there is better evidence of caodaism of bowel function. He remains on IV fluids for intravascular rehydration. I will continue the patient on Pepcid b.i.d. for GI ulcer prophylaxis. He has sequential compression pneumatic devices for DVT prophylaxis. I have ordered low-dose oral Ativan in case of nicotine withdrawal agitation. He will continue physical therapy training as tolerated. Aleksandar Cantor M.D. DR: TRINY JOB#: [id number] CC:
--- NOTE | 2018-10-18 19:13 | NUR ---
HAND-OFF: Report given to Jeremie Servin pt in stable condition. during my shift pt was able to ambulate around his room x2 with staff assistance and around the unit with physical therapy x1 and the use of FWW. - NO BM today and No flatus
--- NOTE | 2018-10-18 19:35 | NUR ---
NURSE NOTES: Received report from FLOWER Hayes and walking rounds made with outgoing nurse. Received pt lying in bed AOx4, denies pain at this time, no distress noted. Surgical dressing C/D/I. Pt states he has notpass gas. Encouraged pt to use incentive spirometry q 1 hr x 10 while awake, verbalized understanding. Bed in lowest position and locked, side rails up x 2, call light within reach. Will continue to monitor.
[2018-10-18 20:00] VITALS: BP 123/72
[2018-10-19] VITALS: BP 122/68
[2018-10-19] MEDS: HYDROmorphone 1mg/ml Carpuject IVP PRN ×2 (02:14→05:44)
[2018-10-19 04:51] VITALS: BP 126/64
[2018-10-19] MEDS: D5 1/2NS 1,000 ML IV SCH ×3 (05:30→20:52)
--- NOTE | 2018-10-19 07:01 | NUR ---
NURSE NOTES: Pt stable overnight, still not pass gas, ambulated to hallway with walker accompanied by RN, gait steady, c/o nausea, medication as needed. Re-inforce teaching to use IS when awake. Verbalized understanding. Will endorse to next nurse.
--- NOTE | 2018-10-19 07:30 | NUR ---
HAND-OFF: Report given to FLOWER Crenshaw. Pt in stable condition.
--- NOTE | 2018-10-19 07:45 | Progress Note ---
DATE: 10/19/2018 ACUTE PAIN MANAGEMENT PHYSICIAN PROGRESS NOTE VITAL SIGNS: Within normal limits. Afebrile, pulse 81, respirations 18, blood pressure 126/64, oxygen saturation 94% on room air. LABORATORY STUDIES: No interval laboratory studies. MEDICATIONS: Medication administration record reviewed. Medications include Pepcid, Flomax, IV fluids, Narcan, Benadryl, Ativan, Fioricet, Tylenol, Zofran, Mylanta, Soma, Chloraseptic spray, Catapres, [place], Dilaudid. I spent over 60 minutes in consultation today. The patient still has not yet passed positive flatus after his ALIF procedure. He is starting to burp, so we would expect passing gas to occur soon. Once the patient does start passing flatus, the surgeon will be notified to determine if he can begin to advance the patient's diet. The patient will remain on IV fluids for good hydration. The patient is making urine, is voiding urine well, and urine appears fairly dilute. I will decrease the IV fluids to 125 mL an hour. The patient is having mild nausea symptoms. I asked if he wished to switch the Dilaudid from intravenous route to subcutaneous route. The patient stated that he preferred to keep the route as previously ordered. The patient shows no oversedation. He is a heavy smoker, but does not appear to demonstrate any withdrawal agitation. He may be having nicotine withdrawal, however, which may be slowing his recovery. We will continue the patient ambulating as tolerated. Soma remains available as an antispasm agent if necessary. The patient has been relatively noncompliant using his incentive spirometer. I did encourage much more frequent usage in light of his tobacco usage. We will continue supportive care while we await improvement and religious of bowel function after his ALIF procedure. We do encourage sequential compression pneumatic devices on his lower extremities for DVT prophylaxis when in bed. Aleksandar Cantor M.D. DR: Giovanni JOB#: [id number] CC:
[2018-10-19 08:00] VITALS: BP 109/66
--- NOTE | 2018-10-19 08:11 | NUR ---
NURSE NOTES: during shift change patient awake alert with out no distress call light with in reach bed on low position, locked, dressing dry and intact, will continue to monitor.
[2018-10-19] MEDS: Hydromorphone 0.5mg/0.5ml inj IVP PRN ×4 (09:16→20:43)
--- NOTE | 2018-10-19 09:30 | NUR ---
NURSE NOTES: RN pulled out medication for 0.5mg of Dilaudid order but unable to obtain 0.5mg vial only 1mg, informed pharmacy and order changed and able to obtain 0.5mg of Dilaudid pharmacy made the change but RN unable to scan previously removed Vial after wasted half of it, spoke to pharmacy and admin manually with witness FLOWER Vail.
[2018-10-19 12:00] VITALS: BP 126/76
[2018-10-19] MEDS ORDERED: D5 1/2NS 1000ml IV ONE (14:03)
--- NOTE | 2018-10-19 14:23 | NUR ---
PT Note Attempted to see patient for treatment but patient refused, c/o having pain. Per RN, patient was medicated 1 hour prior to visit. Patient was educated on the importance of PT treatment but still refused. "I need to sleep."
[2018-10-19 16:00] VITALS: BP_SYST 104; BP_SYST 120; BP_DIAS 70; BP_DIAS 79
--- NOTE | 2018-10-19 16:46 | NUR ---
CASE MANAGEMENT:REVIEW 10/19/2018 SI: BACK PAIN T 98.9 HR 81 RR 18 B/P 122/68 SATS 95% ON RA NO LABS TODAY IS: IV ANCEF Q8HR IVF@125 mL/HR IV DILAUDID PRN : TO MED/SURG [facility]
--- NOTE | 2018-10-19 18:30 | NUR ---
NURSE NOTES: patient family/ pt. spouse called and said they need help PROJECT DEVELOPMENT DIRECTOR went to help and noticed the family member/son on the ground PROJECT DEVELOPMENT DIRECTOR called staff member for help when arrived observed patient laying on the stomach on the floor next to the bed reporting he need help to stand up, the son stated "he was laying on his stomach and talking to his father and when he tried to stand up he did it to fast wrong position and his back hurting so has to get himself in the ground, then he stood up by himself supervisor poultry processing notified and taken to ER transported by wheelchair by staff and mother.
--- NOTE | 2018-10-19 19:50 | NUR ---
HAND-OFF: Report given to FLOWER Barrientos patient stable condition family at bedside, still didn't pass gas bowel sound present.
--- NOTE | 2018-10-19 19:54 | NUR ---
NURSE NOTES: Pt received in bed, states he has burped and not passed gas or had bowel movement, encouraged to walk and that I will assist him if needs help, bed in lowest position, c/o pain and will give medication when it is due, will continue to monitor.
[2018-10-19 20:00] VITALS: BP 150/79
--- NOTE | 2018-10-19 20:57 | NUR ---
NURSE NOTES: Pt went to the restroom and urinated and states he passed gas, pt also walked in the hallway afterward and was just given pain medication, I left message for Dr. Rivero informing him and asking for diet order.
[2018-10-20] VITALS: BP 135/71
[2018-10-20] MEDS ORDERED: HYDROmorphone 1mg/ml Carpuject SUBQ PRN (00:45)
[2018-10-20] MEDS ORDERED: HYDROcodone/Acetamin 10/325 tab ORAL PRN (00:45)
[2018-10-20] MEDS: Hydromorphone 0.5mg/0.5ml inj IVP PRN ×6 (01:01→23:50)
--- NOTE | 2018-10-20 01:30 | Progress Note ---
DATE: 10/20/2018 ACUTE PAIN MANAGEMENT PHYSICIAN PROGRESS NOTE MEDICATIONS: Medication administration record reviewed. Medications include Tylenol, Fioricet, Mylanta, Soma, Catapres, Benadryl, Pepcid, [place], Dilaudid, Ativan, Narcan, Zofran, and Chloraseptic spray. LABORATORY STUDIES: No interval laboratory studies. OBJECTIVE: Vital signs within normal limits. Afebrile, pulse 74, respirations 19, and blood pressure 135/71. Oxygen saturation 94% on room air. I spent over 60 minutes in consultation today. I saw the patient at the bedside. I discussed the case with the nurse, FLOWER Mercedes. The patient continues to advance his ambulation. He is still having significant pain with ambulation in his lower back. I did encourage continued usage of the p.r.n. medications as listed above. His nausea symptoms have mostly improved. He did start passing positive flatus this evening, so I will order a clear liquid diet for trial. I will continue his IV fluids for now. He is making moderate urine output. However, until he demonstrates good oral intake, I will maintain the IV fluids for now. The patient does state that his abdominal bloating, pains have improved with the flatus. He still has incisional pain. The patient still remains poorly compliant with incentive spirometer. Once again I encouraged the patient to be more aggressive. He denies any shortness of breath or chest pain. Now that the patient is passing flatus, we will watch how he tolerates his diet to determine when we can advance his diet further as a way to have continued improvement in his bowel function status post ALIF, anterior lumbar interbody fusion procedure. Aleksandar Cantor M.D. DR: TRINY JOB#: [id number] CC:
[2018-10-20] MEDS ORDERED: LORazepam 0.5mg tab ORAL PRN (02:30)
[2018-10-20 04:00] VITALS: BP 134/76
[2018-10-20] MEDS: D5 1/2NS 1,000 ML IV SCH ×3 (05:03→15:48)
--- NOTE | 2018-10-20 07:26 | NUR ---
HAND-OFF: Report given to FLOWER Faria.
--- NOTE | 2018-10-20 07:42 | NUR ---
NURSE NOTES: Report received from FLOWER Mercedes. Pt shows no signs of distress, A+Ox4, denies pain/SOB. Respirations are even and unlabored on room air. IV site is patent and intact and running fluids @ prescribed rate. Bed is at lowest position, brakes engaged, siderails x2, bed alarm, and call light within reach. Pt is in stable condition at this time; will continue to monitor.
[2018-10-20 08:00] VITALS: BP 133/79
[2018-10-20] MEDS: Docusate 100mg cap ORAL SCH ×2 (08:44→17:50)
--- NOTE | 2018-10-20 08:44 | NUR ---
NURSE NOTES: Dilaudid did not save after being scanned. Administered at the same time as morning medications, pepcid and colace @ 0844 AM. Cannot give next dose until 1144.
--- NOTE | 2018-10-20 09:00 | NUR ---
NURSE NOTES: Pt refusing PT because he just received his pain medication. Let patient know that it is necessary for his rehabilitation. He said to try again later. Dr. Matthews aware.
--- NOTE | 2018-10-20 11:00 | NUR ---
NURSE NOTES: Pt took part in physical therapy.
--- NOTE | 2018-10-20 11:22 | NUR ---
NURSE NOTES: Pt asking for next dose of dilaudid; made pt aware that he cannot have next dose until 1144.
[2018-10-20 12:00] VITALS: BP 132/73
--- NOTE | 2018-10-20 12:29 | NUR ---
CASE MANAGEMENT:REVIEW 10/20/18 SI: POD #3.......S/P ALIF L4-L5 98.2 69 20 132/73 93% ON RA IS: IVF@125/HR IV DILAUDID Q3HRS PRN PEPCID PO BID : MED/SURG STATUS 3 EAST DCP: FROM HOME PLAN: ADVANCE TO REGULAR DIET
--- NOTE | 2018-10-20 13:30 | NUR ---
PT NOTE Attempted to see patient for PT treatment. Patient declining to participate with PT, c/o weakness and dizziness. Giana CRENSHAW notified, will follow up tomorrow.
[2018-10-20 16:00] VITALS: BP 128/76
--- NOTE | 2018-10-20 17:30 | NUR ---
NURSE NOTES: Went into patient's room several times throughout the day after administering 2 doses of dilaudid. Patient never complained of pain or asked for pain medication. Patient now saying "if I can't do my job, I should find someone that can." I apologized to patient and told him that I was under the impression he would verbalize to me when he wanted the pain medication as it is an "as needed" medication. He asked to see the charge nurse and asked I do not administer any more of his meds. Noted; charge nurse administering pain medication.
--- NOTE | 2018-10-20 18:51 | Cardiology Progress Note ---
Assessment/Plan Assessment/Plan [id number] Objective Last 24 Hour Vital Signs Date Time Temp Pulse Resp B/P (MAP) Pulse Ox O2 Delivery O2 Flow Rate FiO2 10/20/18 16:00 99.0 70 18 128/76 (93) 95 10/20/18 12:00 98.2 69 20 132/73 (92) 93 10/20/18 09:00 Room Air 10/20/18 08:00 97.4 79 18 133/79 (97) 93 10/20/18 04:00 98.4 72 20 134/76 (95) 96 10/20/18 00:00 98.8 74 19 135/71 (92) 94 10/19/18 21:00 Room Air 10/19/18 20:00 98.6 76 18 150/79 (102) 96 10/19/18 18:58 99.0 Intake and Output 10/19/18 10/20/18 18:59 06:59 Intake Total 1620 ml Output Total 850 ml 870 ml Balance -850 ml 750 ml Intake Oral 120 ml IV Total 1500 ml Output Urine Total 850 ml 870 ml Valdez Lee MD Oct 20, 2018 18:51
--- NOTE | 2018-10-20 19:29 | NUR ---
HAND-OFF: Report given to FLOWER Esquivel. Pt in stable condition; plan of care endorsed.
--- NOTE | 2018-10-20 19:54 | NUR ---
NURSE NOTES: Patient in bed, awake, alert and verbally responsive. Able to make needs known. Bed in low and locked position. Provided safe environment. Iv site noted, IV fluid is infusing as ordered. Skin is warm and dry to touch. Abdomen is soft. No complaint of pain or discomfort noted at this time. Call light is at bedside. Will continue plan of care.
[2018-10-20 20:05] VITALS: BP 138/73
--- NOTE | 2018-10-20 23:50 | NUR ---
NURSE NOTES: Spoke to the patient regarding paint management, patient is ok with current IV pain medication dilaudid. Encouraged the patient to take PO norco patient has refused at the moment, will speak with patient again regarding the matter.
[2018-10-21] VITALS: BP 126/57
[2018-10-21] MEDS: D5 1/2NS 1,000 ML IV SCH ×2 (01:00→13:30)
--- NOTE | 2018-10-21 01:15 | Consultation ---
DATE OF CONSULTATION: 10/20/2018 NOTE: "POOR AUDIO QUALITY" POSTOPERATIVE CONSULTATION CONSULTING PHYSICIAN: Valdez Lee M.D. REFERRING PHYSICIAN: Jonatan Matthews M.D. REASON FOR REFERRAL: Postoperative management. HISTORY OF PRESENT ILLNESS: This is a middle-aged gentleman, who just had surgery by Dr. Matthews on the and the patient is being seen postoperatively. His main issue is pain, which is being controlled with medications and he has not had a bowel movement yet. He has passed gas. He has been walking in the halls and does have some pain in the postoperative area. He does not have any chest pain or shortness of breath. He does have occasional dizziness and lightheadedness when he stands up. PAST MEDICAL HISTORY: Fairly remarkable for back pain secondary to accident, lung surgery, cavitating lungs status post biopsy, and infection otherwise denies all other medical problems. PAST SURGICAL HISTORY: Lung biopsy. ALLERGIES: None. FAMILY HISTORY: No premature coronary artery disease. SOCIAL HISTORY: Tobacco 1 pack per day for 40 years. Denies alcohol. Daily marijuana, although he stopped using. 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 REVIEW OF SYSTEMS: GASTROINTESTINAL: Some nausea post medication for pain. No bowel movements. Passed gas. GENITOURINARY: No discomfort on urination. PULMONARY: Negative. CONSTITUTIONAL: Negative. NEUROLOGICAL: Negative. PHYSICAL EXAMINATION: GENERAL: Shows to be middle-aged gentleman, in no apparent respiratory distress. NECK: Supple. No jugular venous distention. LUNGS: Clear to auscultation and percussion. CARDIAC: Regular rate and rhythm. ABDOMEN: Soft. There is a surgical dressing on the lower abdomen. The dressing is dry and clean. No redness surrounding. EXTREMITIES: No edema, clubbing, or cyanosis. LABORATORY DATA: Preop laboratories were noted. Postoperative, no significant laboratories are available. ASSESSMENT AND PLAN: 1. Lumbar spine injury. 2. Nicotine dependence. 3. Postoperative pain. This patient was seen in Internal Medicine consultation. He is doing relatively well postoperatively as expected. His bowel movements are pending at this time. He still has the component of ileus. His blood pressure has been fine. His heart rates have been fine. He is not febrile at all. He has been ambulating. He has flatus. He has been started on some diet. Hopefully by tomorrow, he will have a bowel movement to allow him to leave the hospital soon. Valdez Lee M.D. DR: Erica JOB#: [id number] CC:
--- NOTE | 2018-10-21 01:45 | Progress Note ---
DATE: 10/21/2018 ACUTE PAIN MANAGEMENT PHYSICIAN PROGRESS NOTE SUBJECTIVE: Medication administration record reviewed. Medications include IV fluids, Colace, Pepcid, Benadryl, Fioricet, Tylenol, Zofran, Mylanta, Soma, Chloraseptic spray, Catapres, Narcan, [place], Dilaudid, Ativan. LABORATORY STUDIES: No interval laboratory studies. VITAL SIGNS: Afebrile, pulse 71, respirations 19, blood pressure 138/73, oxygen saturation 95% on room air. I spent over 60 minutes in consultation today. I saw the patient at the bedside with the nurse, FLOWER Esquivel. I discussed the case in detail with hospitalist, Dr. Lee, along with surgeon, Dr. Matthews. The patient began passing positive flatus today and I started him on clear liquid diet for breakfast. This was well tolerated and Dr. Matthews later advanced the patient's diet to regular. The patient has no further nausea symptoms. He has been using the breakthrough Dilaudid primarily for analgesia. Now, the patient is tolerating oral intake, I have asked the nursing team to begin dosing the oral [place] more frequently to help transition off of parenteral narcotics. The patient does not show any anxiety. He does not appear to show any nicotine withdrawal despite his heavy tobacco usage. I started the patient on Colace and asked the nursing team to provide prune juice at the bedside to help with return of bowel function. The patient is passing positive flatus, but still has not yet had a bowel movement after his anterior lumbar interbody fusion procedure. I will defer more aggressive laxatives to Dr. Matthews and the surgical team. The patient will continue to advance his ambulation as tolerated. Incentive spirometer remains at the bedside, which continues to be encouraged frequently. I will maintain the patient on b.i.d. Pepcid for GI ulcer prophylaxis. Overall, the patient is continuing to recover after his lumbar spine fusion surgery, we will await continued improvement and anglican of his bowel function. Aleksandar Catnor M.D. DR: TUYET JOB#: [id number] CC:
[2018-10-21] MEDS: Hydromorphone 0.5mg/0.5ml inj IVP PRN ×6 (02:46→21:48)
[2018-10-21 04:00] VITALS: BP 112/57
--- NOTE | 2018-10-21 06:01 | NUR ---
NURSE NOTES: Patient in bed, awake, alert. Patient complained of pain 6/10, given PRN pain medication as ordered. Educated patient regarding pain regiment, patient noted saying "let me still have the dilaudid for now, I know I wont be having it at home. Patient educated regarding pain medication, will need to transition to PO pain medication.
--- NOTE | 2018-10-21 07:21 | NUR ---
HAND-OFF: Report given to FLOWER [place].
--- NOTE | 2018-10-21 07:25 | NUR ---
NURSE NOTES: Patient lying in bed sleeping. Complain of pain 4/10 on surgical site and pain medication given by manager shift nurse. Will continue to monitor. Surgical dressing intact and dry. IV dressing intact and dry. Bed lowest position. Call light within reach. Will continue to monitor.
[2018-10-21 08:00] VITALS: BP 121/68
[2018-10-21] MEDS: Docusate 100mg cap ORAL SCH ×2 (08:56→17:42)
[2018-10-21 12:00] VITALS: BP 123/71
--- NOTE | 2018-10-21 14:17 | NUR ---
PT notes: patient declined treatment due to increase fatigability; complaint of back pain with p/s of 7/10; RN aware of the situation. will follow up next treatment schedule.
[2018-10-21 16:00] VITALS: BP 121/72
--- NOTE | 2018-10-21 17:52 | Cardiology Progress Note ---
Assessment/Plan Assessment/Plan 1. Lumbar spine injury. 2. Nicotine dependence. 3. Postoperative pain. 4. iletracee weeks has flatus but no bm ambualting dt ppx with ambulation and pneumaotic stocking Subjective Cardiovascular: Denies: chest pain, lightheadedness, palpitations Respiratory: Denies: SOB with excertion Gastrointestinal/Abdominal: Reports: constipated; Denies: black stools Genitourinary: Denies: burning Objective Last 24 Hour Vital Signs Date Time Temp Pulse Resp B/P (MAP) Pulse Ox O2 Delivery O2 Flow Rate FiO2 10/21/18 16:00 98.3 72 15 121/72 (88) 99 10/21/18 12:00 98.0 75 18 123/71 (88) 100 10/21/18 09:00 Room Air 10/21/18 08:00 98.5 70 19 121/68 (85) 100 10/21/18 04:00 98.4 60 18 112/57 (75) 95 10/21/18 00:00 98.9 80 18 126/57 (80) 98 10/20/18 20:05 99.2 71 19 138/73 (94) 95 10/20/18 20:04 Room Air General Appearance: no apparent distress, alert Neck: supple Cardiovascular: normal rate, regular rhythm Respiratory/Chest: lungs clear Abdomen: normal bowel sounds Extremities: no swelling Intake and Output 10/20/18 10/21/18 18:59 06:59 Intake Total 1550 ml 825 ml Output Total 600 ml Balance 1550 ml 225 ml Intake Oral 300 ml 450 ml IV Total 1250 ml 375 ml Output Urine Total 600 ml # Voids 1 2 Valdez Lee MD Oct 21, 2018 17:52
[2018-10-21] MEDS ORDERED: Magnesium Citrate Liq Btl ORAL SCH (18:30)
--- NOTE | 2018-10-21 19:25 | NUR ---
NURSE NOTES: Report taken from FLOWER [place]. Patient is awake in bed, A&Ox4. No signs of distress on room air. Having some moderate complaints of pain, 4/10, near surgical area. Patient able to ambulate. Skin intact. IV site c/d/i and patent, no fluids running. Bed in lowest position, call light within reach.
--- NOTE | 2018-10-21 19:30 | NUR ---
HAND-OFF: Report given to Freddie CRENSHAW. Patient in stable condition.
[2018-10-21 20:00] VITALS: BP 113/61
[2018-10-21] MEDS ORDERED: HYDROcodone/Acetamin 5/325 tab ORAL PRN (20:00)
[2018-10-22] VITALS: BP 124/68
[2018-10-22 04:00] VITALS: BP 123/72
--- NOTE | 2018-10-22 07:14 | NUR ---
HAND-OFF: Report given to FLOWER [place]. Patient is stable.
--- NOTE | 2018-10-22 07:20 | NUR ---
NURSE NOTES: Patient lying in bed awake. No complain of pain or distress at this time. Skin intact and dry. Surgical dressing intact and dry. IV dressing intact and dry. Bed lowest position. Call light within reach. Will continue to monitor.
[2018-10-22 08:00] VITALS: BP 119/72
[2018-10-22] MEDS: Docusate 100mg cap ORAL SCH (08:40)
[2018-10-22] MEDS ORDERED: Magnesium Citrate Liq Btl ORAL SCH (09:15)
--- NOTE | 2018-10-22 10:39 | NUR ---
NURSE NOTES: Patient had solid medium amount BM. Spoke to regarding discharge and new order received. Order read back and carried out.
--- NOTE | 2018-10-22 11:40 | NUR ---
PT NOTE Attempted to see patient for PT treatment. Patient declined to participate with PT treatment, states he is being discharged home.
[2018-10-22 12:00] VITALS: BP 123/75
--- NOTE | 2018-10-22 12:00 | NUR ---
NURSE NOTES: Patient discharged with family member in stable condition. Discharge instruction given to patient and verbalized understanding. Belonging given to patient. Instructed to follow up with MD. IV and ID removed. Patient ambulated out with all personal belongings with steady gait.
--- NOTE | 2018-10-22 13:39 | Discharge Summary ---
Discharge Summary Hospital Course Date of Admission Oct 17, 2018 at 08:12 Date of Discharge Oct 22, 2018 at 12:00 Admitting Diagnosis post trauma back pain with clinical instability Reason for Hospitalization: elective surgery HPI 58 y/old male presented with post trauma back pain with clinical lumbar instability. Patient admitted for elective surgery. Consultations Dr Lee - IM/cardio Dr Cantor- pain specialist Procedures s/p 10/17/[address] Matthews 1. ALIF L4-L5, anterior internal plate fixation. 2. Placement of BMP/osteopromotive material encased in fibrin glue. 3. Anterior internal plate fixation in compressive fashion 25 mm titanium screws. 4. SSEP monitoring. 5. Local anesthetic applied by surgeons. 6. Intraoperative fluoroscopy interpreted by surgeons. s/p 10/17/[address] Kessler ( vascular approach) Anterior retroperitoneal exposure, L4-L5 vertebral interspace, left retroperitoneal approach Hospital Course status post surgery course of recovery uneventful initially IV fluids s/p perioperative antibiotics neurovascular status closely monitored, stable incision clean, dry , and intact pain management addressed pain specialist followed; pain controlled patient remained hemodynamically stable ambulated with PT fall precautions maintained; safe for ambulation DVT prophylaxis provided use of incentive spirometry was encouraged while in the bed initially NPO until bowel function returned , then slowly started on diet and was advanced as tolerated bowel regimen instituted, tolerated diet , IV fluids discontinued GI prophylaxis provided antiemetics were on board as needed voided freely patient was stable for discharge discharge instructions provided follow up with surgeon as outpatient in clinic as advised by surgeon FINAL DIAGNOSES post trauma back pain with clinical instability s/p ALIF L4-L5 Nicotine dependency Postoperation pain, Ileus -resolved Discharge Medications Continued Medications: Hydrocodone Bit/Acetaminophen 10-325* ([place] 10-325*) 1 Each Tablet 1 TAB ORAL Q4H PRN for For Pain, #10 TAB 0 Refills (This prescription has been renewed) PRN PAIN Discharge Condition Upon Discharge: stable Discharge Disposition Patient was discharged home Discharge Instructions Discharge Instructions Special Instructions I have been assigned to complete a D/C Summary on this account. I was not involved in the patient management Roseanne Figueroa PALS SPECIALIST Oct 22, 2018 13:39
--- NOTE | 2018-10-22 18:30 | Progress Note ---
DATE: 10/22/2018 ACUTE PAIN MANAGEMENT PHYSICIAN PROGRESS NOTE. OBJECTIVE: VITAL SIGNS: Afebrile, pulse 75, respirations 18, blood pressure 118/72, oxygen saturation 94% on room air. LABORATORY STUDIES: No interval laboratory studies. MEDICATIONS: Medication administration record reviewed. Medications include Colace, Pepcid, magnesium citrate, Benadryl, Fioricet, Tylenol, Zofran, Mylanta, Soma, Chloraseptic spray, Catapres, Narcan Dilaudid, [place]. I spent over 60 minutes in consultation today. I discussed the case with the surgeon, Dr. Matthews along with the hospitalist, Dr. Lee. I saw the patient at bedside with the nurse RN, Yared. The patient has been advancing his diet well over the past 24 hours without any nausea symptoms. Dr. Lee dosed the patient with magnesium citrate, and finally the patient had a bowel movement this morning. The patient has a good supply of [place] for home usage already. The patient is still having some abdominal incisional pain. However, he is ambulating well. He has good posture standing and feels comfortable for trial to discharge to home to his later today. The patient denies any shortness of breath or chest pain. The patient is in good spirits and shows no anxiety. Oral [place] pills seem to have good effect. I lower the dose from 10 mg to 5 mg as the patient stated that the 10 mg dose is causing some lightheadedness. A 5 mg dose was very well tolerated. I did remind the patient to continue with incentive spirometer usage at home and to discontinue smoking as continued smoking may be deleterious toward fusion spinal surgery repair. The patient agreed and we will follow up with the surgeon and Dr. Matthews's outpatient clinic within next two weeks. Aleksandar Cantor M.D. DR: Shelly JOB#: [id number] CC:
== END 2018-10-22 12:00 | disposition home or self-care (01) | DRG 460 ==
LOC: SDSOVERFLO 10-17 08:12 → 3E 10-17 13:08
PROC: 3E0U0GB Introduction of Recombinant Bone Morphogenetic Protein into Joints, Open Approach (ICD-10-PCS; principal; 2018-10-17 10:00)
PROC: 0SG00A0 Fusion of Lumbar Vertebral Joint with Interbody Fusion Device, Anterior Approach, Anterior Column, Open Approach (ICD-10-PCS; principal; 2018-10-17 10:00)
PROC: 4A11X4G Monitoring of Peripheral Nervous Electrical Activity, Intraoperative, External Approach (ICD-10-PCS; principal; 2018-10-17 10:00)
DX: M53.2X6 Spinal instabilities, lumbar region (principal); K56.7 Ileus, unspecified; F17.200 Nicotine dependence, unspecified, uncomplicated; G89.18 Other acute postprocedural pain
CPT/HCPCS: 36415; 72020; 76000; 86850; 86900; 86901; 87081; 94003; 94150; J2405; J2710